=== PATIENT | female | born 1960 | race Caucasian/White ===

== ENCOUNTER 2017-11-09 01:34 | Emergency (ER) | payer MEDICARE ==
[2017-11-09 02:30] LABS: #Basophils 0.1 thou/uL (0.0-0.2); #Eosinphils 0.4 thou/uL (0.0-0.7); #Lymphocytes 3.2 thou/uL (1.20-3.40); #Monocytes 0.4 thou/uL (0.11-0.59); #Neutrophils 5.7 thou/uL (1.40-6.50); %Basophils 0.9 % (0.0-1.0); %Lymphocytes 32.9 % (21.0-51.0); %Monocytes 4.2 % (0.0-10.0); %Neutrophils 58.1 % (42.0-75.0); Mean Corpuscular HGB CONC 33.4 g/dL (32.0-36.0); Mean Corpuscular Hemoglobin 31.4 pg (27.0-31.0); Mean Corpuscular Volume 94.1 fl (81.0-99.0); Mean Platelet Volume 7.7 fL (7.4-10.4); Platelet Count 334 thou/uL (130-400); RBC Distribution Width 12.1 % (11.5-14.5); Red Blood Cell (RBC) Count 3.82 mill/uL (4.20-5.40); White Blood Cell (WBC) Count 9.8 thou/uL (4.8-10.8)
[2017-11-09 02:40] LABS: PTT 28.6 SEC (22.9-36.1); Prothrombin Time 13.1 SEC (12.0-14.7)
[2017-11-09 02:51] LABS: Bilirubin Negative (Negative); Blood, Urine Negative (Negative); Clarity Clear (Clear); Glucose, Urine (Dipstick) Negative (Negative); Leukocyte Small (Negative); Nitrite Negative (Negative); Protein, Urine (Dipstick) Negative (Neg-Trace); Specific Gravity, Urine 1.015 (1.005-1.030); Urobilinogen 0.2 mg/dL (0.2-1.0); pH, Urine 5.5 (5.0-9.0)
[2017-11-09 02:51] LABS: Acetaminophen Less than 6.0 mcg/mL (10.0-30.0); Alcohol Less than 10 mg/dL (Less than 10); Salicylate Less than 8.0 mg/dL (15.0-30.0)
[2017-11-09 02:53] LABS: ALT (SGPT) 16 U/L (8-55); AST (SGOT) 16 U/L (5-34); Albumin 3.7 g/dL (3.5-5.0); Alkaline Phosphatase 123 U/L (40-150); Anion Gap 14 mmol/L (10-20); BUN (Urea Nitrogen) 17 mg/dL (9.8-20.1); Bilirubin, Total 0.2 mg/dL (0.2-1.2); CKMB 1.1 ng/mL (0-6.6); Calc. Creatinine Clearance 0 mL/min (70-130); Calcium 8.8 mg/dL (7.8-10.44); Carbon Dioxide 27 mmol/L (22-29); Chloride 100 mmol/L (98-107); Estimated GFR-MDRD 85; Globulin 2.9 g/dL (2.4-3.5); Glucose 124 mg/dL (70-105); Potassium 4.3 mmol/L (3.5-5.1); Protein, Total 6.6 g/dL (6.0-8.3); Sodium 137 mmol/L (136-145); Troponin I Less than 0.010 ng/mL (< 0.028)
[2017-11-09 02:54] LABS: CK (CPK) 52 U/L (29-168); Lipase 32 U/L (8-78)
[2017-11-09 02:55] LABS: Bacteria/HPF None Seen HPF (None Seen)
[2017-11-09 02:59] LABS: Cocaine Metabolite Screen Not Detected (NotDetected); Methamphetamine Not Detected (NotDetected); Opiate Screen Detected (NotDetected); Phencyclidine (PCP) Not Detected (NotDetected); THC/Cannabinoid Screen Not Detected (NotDetected)
[2017-11-09 03:00] LABS: Amphetamine Not Detected (NotDetected); Barbiturates Screen Not Detected (NotDetected); Benzodiazepine Screen Not Detected (NotDetected); Medtox Control Line Valid? VALID (VALID); Methadone Not Detected (NotDetected); Oxycodone Screen Not Detected (NotDetected); Tricyclic Screen Not Detected (NotDetected)
[2017-11-09] MEDS ORDERED: Nitrofurantoin Monohyd/M-Cryst 100 MG CAP ONE (03:31)
--- NOTE | 2017-11-09 08:15 | RAD ---
PORTABLE UPRIGHT FRONTAL CHEST RADIOGRAPH: Date: 11-09-17 Comparison: 08-03-08 History: Altered mental status. FINDINGS: Heart and mediastinal contours appear within normal limits. Lungs are clear. IMPRESSION: No acute findings. POS: [facility]
[2017-11-09 11:00] LABS: CRP (Inflammatory) Less than 0.50 mg/dL (= or < 0.5)
== END 2017-11-09 08:20 ==
LOC: MADERS 01:34
DX: T39.312A Poisoning by propionic acid derivatives, intentional self-harm, initial encounter (principal); T40.2X2A Poisoning by other opioids, intentional self-harm, initial encounter; F32.9 Major depressive disorder, single episode, unspecified; Z79.899 Other long term (current) drug therapy; Z91.5 Personal history of self-harm; Z87.891 Personal history of nicotine dependence; Y92.9 Unspecified place or not applicable
CPT/HCPCS: 36415; 71045; 80053; 80306; 80307; 81001; 82553; 83690; 83880; 84443; 84484; 85025; 85610; 85730; 86140; 87086; 93005

== ENCOUNTER 2022-08-21 03:18 | Emergency (ER) | payer MEDICARE ==
[2022-08-21 04:17] LABS: #Basophils 0.1 thou/uL (0.0-0.2); #Eosinphils 0.4 thou/uL (0.0-0.7); #Lymphocytes 3.5 thou/uL (1.20-3.40); #Monocytes 0.5 thou/uL (0.11-0.59); #Neutrophils 5.5 thou/uL (1.40-6.50); %Basophils 0.7 % (0.0-1.0); %Neutrophils 55.2 % (42.0-75.0); Mean Corpuscular HGB CONC 32.6 g/dL (32.0-36.0); Mean Corpuscular Hemoglobin 30.9 pg (27.0-31.0); Mean Corpuscular Volume 94.6 fL (78.0-98.0); Mean Platelet Volume 9.6 fL (7.4-10.4); Platelet Count 272 thou/uL (130-400); RBC Distribution Width 12.5 % (11.5-14.5)
[2022-08-21 04:20] LABS: Bilirubin Negative (Negative); Blood, Urine Negative (Negative); Clarity Clear (Clear); Glucose, Urine (Dipstick) Negative (Negative); Ketone, Urine Negative (Negative); Leukocyte Negative (Negative); Nitrite Negative (Negative); Protein, Urine (Dipstick) Negative (Neg-Trace); Specific Gravity, Urine 1.005 (1.002-1.036); Urobilinogen 0.2 mg/dL (Less than 2); pH, Urine 5.5 (5.0-9.0)
[2022-08-21 04:29] LABS: Amphetamine Not Detected (NotDetected); Barbiturates Screen Not Detected (NotDetected); Benzodiazepine Screen Not Detected (NotDetected); Cocaine Metabolite Screen Not Detected (NotDetected); Medtox Control Line Valid? VALID (VALID); Methadone Not Detected (NotDetected); Methamphetamine Not Detected (NotDetected); Opiate Screen Detected (NotDetected); Oxycodone Screen Not Detected (NotDetected); Phencyclidine (PCP) Not Detected (NotDetected); THC/Cannabinoid Screen Not Detected (NotDetected); Tricyclic Screen Not Detected (NotDetected)
[2022-08-21 04:38] LABS: ALT (SGPT) 13 U/L (8-55); AST (SGOT) 15 U/L (5-34); Acetaminophen Less than 10.0 mcg/mL (10.0-30.0); Albumin 3.9 g/dL (3.4-4.8); Alcohol Less than 10 mg/dL (Less than 10); Alkaline Phosphatase 96 U/L (40-110); Anion Gap 13 mmol/L (10-20); BUN (Urea Nitrogen) 13 mg/dL (9.8-20.1); Bilirubin, Total 0.4 mg/dL (0.2-1.2); Calc. Creatinine Clearance 0 mL/min (70-130); Calcium 9.2 mg/dL (7.8-10.44); Carbon Dioxide 25 mmol/L (23-31); Chloride 107 mmol/L (98-107); Estimated GFR 99; Globulin 2.4 g/dL (2.4-3.5); Glucose 92 mg/dL (80-115); Potassium 3.9 mmol/L (3.5-5.1); Protein, Total 6.3 g/dL (5.8-8.1); Salicylate Less than 8.0 mg/dL (15.0-30.0); Sodium 141 mmol/L (136-145)
== END 2022-08-21 08:54 ==
LOC: MADERS 03:18
DX: R45.851 Suicidal ideations (principal); Z87.891 Personal history of nicotine dependence
CPT/HCPCS: 36415; 80306; 80307; 81003; 82550; 84443; 85025; 93005

== ENCOUNTER 2024-11-02 09:53 | Emergency (ER) | payer MEDICARE ==
[2024-11-02 10:32] LABS: Anion Gap 13 mmol/L (10-20); BUN (Urea Nitrogen) 9 mg/dL (9.8-20.1); Calc. Creatinine Clearance 0 mL/min (70-130); Calcium 8.3 mg/dL (7.8-10.44); Carbon Dioxide 26 mmol/L (23-31); Chloride 107 mmol/L (98-107); Estimated GFR 99; Glucose 105 mg/dL (80-115); Potassium 3.8 mmol/L (3.5-5.1); Sodium 142 mmol/L (136-145)
[2024-11-02 10:35] LABS: Anisocytosis SLIGHT = 6-15 cells (100X) (0-5/hpf); Band 26 % (5-11); Hematocrit 38.3 % (36.0-47.0); Hemoglobin 12.2 g/dL (12.0-16.0); Hypochromia SLIGHT = 6-15 cells (100X) (0-5/hpf); Lymphocytes 2 % (21-51); MDiff Complete? YES; Mean Corpuscular HGB CONC 31.8 g/dL (32.0-36.0); Mean Corpuscular Hemoglobin 29.7 pg (27.0-31.0); Mean Corpuscular Volume 93.4 fl (78.0-98.0); Mean Platelet Volume 8.4 fL (7.4-10.4); Monocytes 6 % (0-10); Neutrophil 63 % (42-75); Platelet Adequacy Comment Appears Adequate; Platelet Count 287 10x3/uL (130-400); RBC Distribution Width 11.8 % (11.5-14.5); White Blood Cell (WBC) Count 13.1 10x3/uL (4.8-10.8)
[2024-11-02 10:37] LABS: Base Excess-Venous 5.6 mmol/L (-2.0 to 3.0); Bicarbonate (HCO3v) 30.1 mmol/L (22.0-28.0); CO2 Tension (PvCO2) 42.1 mmHg (42.0-51.0); Calcium, Ionized 1.12 mmol/L (1.15-1.33); Chloride 105 mmol/L (98-107); Hemoglobin - Calc 13.3 g/dL (12.0-16.0); Potassium 3.6 mmol/L (3.5-5.1); Sodium 146 mmol/L (138-145); T. Carbon Dioxide 31.4 mmol/L (22.0-28.0); vO2 Saturation-calc 99.3 % (60.0-85.0)
[2024-11-02] MEDS ORDERED: Acetaminophen 500 MG TAB ONE (10:51)
[2024-11-02] MEDS ORDERED: Azithromycin 500 MG VIAL ONE (10:51)
[2024-11-02] MEDS ORDERED: Ipratropium/Albuterol 3 ML NEB ONE ×2 (10:51→11:19)
[2024-11-02] MEDS ORDERED: Ibuprofen 200 MG TAB ONE (10:51)
[2024-11-02] MEDS ORDERED: Sodium Chloride 0.9% 100 ML ONE (10:52)
[2024-11-02] MEDS ORDERED: Magnesium 2 GM/50 ML BAG (IN WATER) ONE (10:52)
[2024-11-02] MEDS ORDERED: Sodium Chloride 0.9% 250 ML 250 ML ONE (10:52)
[2024-11-02] MEDS ORDERED: Lactated Ringer's 1,000 ML ONE (10:52)
[2024-11-02] MEDS ORDERED: cefTRIAXone (ROCEPHIN) 1 GM VIAL ONE (10:52)
[2024-11-02] MEDS ORDERED: methylPREDNISolone Sod Succ/PF 125 MG/2 ML VIAL ONE (10:52)
== END 2024-11-02 13:28 | disposition home or self-care (01) ==
LOC: MADERS 09:53
DX: J44.1 Chronic obstructive pulmonary disease with (acute) exacerbation (principal); J18.9 Pneumonia, unspecified organism; Z87.891 Personal history of nicotine dependence
CPT/HCPCS: 71045; 80048; 82330; 82435; 82803; 83605; 84132; 84295; 85014; 85025; 87040; 87428; 93005; 96365; 96367; 96375; 99285; J0456; J0696; J2919; J3475; J7050; J7120; J7620

== ENCOUNTER 2024-12-11 14:38 | Outpatient (CLI) | payer MEDICARE | END 2024-12-11 14:39 | disposition home or self-care (01) | LOC: MADLAB 14:38 → MADRAD 14:39 | PROVIDERS: ATTEND Registered Nurse | DX: J06.9 Acute upper respiratory infection, unspecified (principal); J40 Bronchitis, not specified as acute or chronic | CPT/HCPCS: 71046 ==

== ENCOUNTER 2025-07-12 15:27 | Emergency (ER) | payer MEDICARE ==
[2025-07-12 17:37] LABS: INR-International Normal Ratio 1.2; Prothrombin Time 15.7 sec (12.0-14.7)
[2025-07-12 17:38] LABS: PTT 39.6 sec (22.9-36.1)
[2025-07-12 17:39] LABS: Hematocrit 37.8 % (36.0-47.0); Hemoglobin 11.8 g/dL (12.0-16.0); Mean Corpuscular Hemoglobin 29.9 pg (27.0-31.0); Mean Corpuscular Volume 95.4 fl (78.0-98.0); Platelet Count 382 10x3/uL (130-400); Red Blood Cell (RBC) Count 3.96 mill/uL (4.20-5.40); White Blood Cell (WBC) Count 12.9 10x3/uL (4.8-10.8)
[2025-07-12 17:45] LABS: MDiff Complete? YES; Manual Diff?? YES
[2025-07-12 17:46] LABS: Platelet Adequacy Comment Appears Adequate
[2025-07-12 17:51] LABS: ALT (SGPT) Less than 4 U/L (Less than 34); AST (SGOT) 25 U/L (11-34); Albumin 3.1 g/dL (3.1-4.5); Alkaline Phosphatase 214 U/L (40-110); Anion Gap 22 mmol/L (10-20); BUN (Urea Nitrogen) 64 mg/dL (9.8-20.1); Bilirubin, Total 0.9 mg/dL (0.3-1.2); CK (CPK) 75 U/L (29-168); Calc. Creatinine Clearance 0 mL/min (70-130); Calcium 8.9 mg/dL (7.8-10.44); Carbon Dioxide 24 mmol/L (23-31); Chloride 98 mmol/L (98-107); Globulin 3.3 g/dL (2.4-3.5); Glucose 74 mg/dL (80-115); Potassium 5.3 mmol/L (3.5-5.1); Sodium 139 mmol/L (136-145); Troponin I 0.032 ng/mL (< 0.028)
[2025-07-12 17:52] LABS: Acetaminophen Less than 10 mcg/mL (Less than 10); Magnesium 2.3 mg/dL (1.6-2.6); Salicylate Less than 8.0 mg/dL (Less than 8.0)
[2025-07-12 18:06] LABS: Lipase Less than 4 U/L (8-78)
== END 2025-07-12 19:54 | disposition short-term general hospital (02) ==
LOC: MADERS 15:27
DX: K63.1 Perforation of intestine (nontraumatic) (principal); N17.9 Acute kidney failure, unspecified; G93.40 Encephalopathy, unspecified; R09.02 Hypoxemia; K66.8 Other specified disorders of peritoneum; J18.9 Pneumonia, unspecified organism; J45.909 Unspecified asthma, uncomplicated; M79.7 Fibromyalgia; M26.609 Unspecified temporomandibular joint disorder, unspecified side; K58.9 Irritable bowel syndrome, unspecified; R29.706 NIHSS score 6; Z87.891 Personal history of nicotine dependence
CPT/HCPCS: 36415; 36416; 70450; 71045; 74176; 80053; 80307; 82550; 83605; 83690; 83735; 84443; 84484; 85025; 85610; 85730; 93005; 94760; 96365; 96375; J2060; J2272; J2543; J7030

== ENCOUNTER 2025-10-30 11:37 | Outpatient (CLI) | payer MEDICARE ==
[2025-10-30 12:22] LABS: Anion Gap 17 mmol/L (10-20); BUN (Urea Nitrogen) 15 mg/dL (9.8-20.1); Calc. Creatinine Clearance 0 mL/min (70-130); Calcium 8.4 mg/dL (7.8-10.44); Carbon Dioxide 24 mmol/L (23-31); Chloride 106 mmol/L (98-107); Glucose 101 mg/dL (80-115); Potassium 3.8 mmol/L (3.5-5.1); Sodium 143 mmol/L (136-145)
[2025-10-30 12:46] LABS: Hematocrit 31.6 % (36.0-47.0); Hemoglobin 9.9 g/dL (12.0-16.0); Mean Corpuscular Hemoglobin 29.8 pg (27.0-31.0); Mean Corpuscular Volume 95.2 fl (78.0-98.0); Platelet Count 364 10x3/uL (130-400); Red Blood Cell (RBC) Count 3.32 mill/uL (4.20-5.40); White Blood Cell (WBC) Count 15.0 10x3/uL (4.8-10.8)
[2025-10-30 12:54] LABS: MDiff Complete? YES; Manual Diff?? YES
[2025-10-30 12:55] LABS: Platelet Adequacy Comment Appears Adequate
== END 2025-10-30 11:38 | disposition home or self-care (01) ==
LOC: MADLAB 11:37
PROVIDERS: ATTEND Internal Medicine Infectious Disease
DX: Z09 Encounter for follow-up examination after completed treatment for conditions other than malignant neoplasm (principal)
CPT/HCPCS: 36415; 80048; 85025; 86140